=== PATIENT | male | born 1980 | race Caucasian/White ===

== ENCOUNTER 2017-12-07 12:10 | Emergency (ER) | payer MEDICARE, MEDICAID ==
[~2017-12-07 12:10] MED LIST changes: -ALBU2.5V36 INH
--- NOTE | 2017-12-07 12:20 | ER Report ---
History and Physical Time Seen By MD: 12:20 HPI/ROS CHIEF COMPLAINT: Altered LOC HISTORY OF PRESENT ILLNESS: This is a 37-year-old male who presents to the emergency department via EMS for a syncopal episode. Patient [place] got to the [employer] restaurant and "blacked out" doesn't really remember anything after that. EMS was called and they noted his blood sugar to be in the 30s he was given an amp of D50 mentation slightly improved. They did start an IV gave him some fluids. Patient denies headache, nausea, vomiting, diarrhea, aches, chills, chest pain, shortness of breath no dysuria. Patient states that this "blacking out" happens once while, happened last year however he states he never came in for evaluation. She denies a family history of diabetes, hypoglycemia or sudden cardiac . REVIEW OF SYSTEMS: Constitutional: No fever, no chills. Eyes: No discharge. ENT: No sore throat. Cardiovascular: No chest pain, no palpitations. Respiratory: No cough, no shortness of breath. Gastrointestinal: No abdominal pain, no vomiting. Genitourinary: No hematuria. Musculoskeletal: No back pain. Skin: No rashes. Neurological: As above. Allergies: Coded Allergies: No Known Drug Allergies (Unverified , 12/07/17) Home Meds Reported Medications Albuterol Sulfate 0.083% (ALBUTEROL SULFATE 0.083%) 2.5 Mg/3 Ml Vial.neb, 2.5 MG INH, INH 12/07/17 Albuterol Sulfate 90 Mcg/Act (PROAIR HFA 90 MCG/ACT) 8.5 Gm Hfa.aer.ad, 1-2 PUFF IH 3-4XD, INHALER 06/22/16 Discontinued Scripts Cyclobenzaprine Hcl (CYCLOBENZAPRINE HCL) 10 Mg Tablet, 10 MG PO TID, #9 TAB Prov:ADRIANO HUGHES MD 03/30/17 Past Medical/Surgical History Patient has a past medical and surgical history of neurofibromitosis, chronic back pain, appendectomy. Reviewed Nurses Notes: Yes Hx Smoking: No Smoking Status: Never Smoker Hx Substance Use Disorder: No Hx Alcohol Use: No Constitutional Vital Sign - Last 24 Hours 12/07/17 12/07/17 12/07/1718 12:20 12:30 12:40 12:45 Pulse 101 95 Resp 14 21 B/P (MAP) 146/88 (107) 141/83 (102) Pulse Ox 91 89 12/07/17 12/07/17 12/07/17 12/07/17 13:15 13:30 14:00 14:15 Pulse 105 97 Resp 13 16 B/P (MAP) 121/81 (94) 126/82 (97) 12/07/17 12/07/17 14:30 14:51 Pulse 100 Resp 14 B/P (MAP) 137/92 (107) 140/85 (103) Intake and Output 12/07/17 12/07/17 12/08/17 15:00 23:00 07:00 Intake Total 1000 ml Balance 1000 ml Physical Exam General Appearance: The patient is alert, has no immediate need for airway protection and no signs of toxicity. Eyes: Pupils equal and round no pallor or injection. ENT, Mouth: Mucous membranes are moist. It does appear that the patient has some bite fry to the left side of his tongue. Respiratory: There are no retractions, lungs are clear to auscultation. Cardiovascular: Regular rate and rhythm, no murmurs, clicks or rubs. Gastrointestinal: Abdomen is soft and non tender, no masses, bowel sounds normal. Neurological: Patient is alert and oriented 3, he is unable to recall what month without some prompting. He is able to give me a history of his past syncopal episodes. Cranial nerves II through XII intact. No focal neuro deficits. He is following all commands. Skin: Warm and dry, no rashes. Musculoskeletal: Neck is supple non tender. Extremities are nontender, nonswollen and have full range of motion. DIFFERENTIAL DIAGNOSIS: After history and physical exam differential diagnosis was considered for syncope including but not limited to vasovagal syncope, arrhythmia, dehydration, and blood loss. Medical Decision Making Data Points Result Diagram: 12/07/17 1210 12/07/17 1210 Laboratory Hematology Test 12/07/17 12:10 12/07/17 12:39 12/07/17 14:13 12/07/17 14:48 Red Blood Count 6.20 M/uL (4.00-5.60) Mean Corpuscular Volume 85.2 fL (80.0-96.0) Mean Corpuscular Hemoglobin 30.8 pg (26.0-33.0) Mean Corpuscular Hemoglobin Concent 36.1 g/dL (32.0-36.0) Red Cell Distribution Width 13.2 % (11.5-14.5) Mean Platelet Volume 8.6 fL (7.2-11.1) Neutrophils (%) (Auto) 69.4 % (39.4-72.5) Lymphocytes (%) (Auto) 22.5 % (17.6-49.6) Monocytes (%) (Auto) 5.7 % (4.1-12.4) Eosinophils (%) (Auto) 1.5 % (0.4-6.7) Basophils (%) (Auto) 0.9 % (0.3-1.4) Nucleated RBC Relative Count (auto) 0.1 /100WBC Neutrophils # (Auto) 7.5 K/uL (2.0-7.4) Lymphocytes # (Auto) 2.4 K/uL (1.3-3.6) Monocytes # (Auto) 0.6 K/uL (0.3-1.0) Eosinophils # (Auto) 0.2 K/uL (0.0-0.5) Basophils # (Auto) 0.1 K/uL (0.0-0.1) Nucleated RBC Absolute Count (auto) 0.01 K/uL Sodium Level 142 mmol/L (137-145) Potassium Level 3.8 mmol/L (3.5-5.0) Chloride Level 101 mmol/L (98-107) Carbon Dioxide Level 18 mmol/L (22-30) Blood Urea Nitrogen 11 mg/dl (9-21) Creatinine 0.90 mg/dl (0.66-1.25) Glomerular Filtration Rate Calc > 60.0 Random Glucose 123 mg/dl (75-110) Calcium Level 9.9 mg/dl (8.4-10.2) Total Bilirubin 0.7 mg/dl (0.2-1.3) Aspartate Amino Transf (AST/SGOT) 39 U/L (0-35) Alanine Aminotransferase (ALT/SGPT) 77 U/L (0-56) Alkaline Phosphatase 83 U/L (0-126) Ammonia 38 UMOL/L (9-33) Troponin I < 0.012 ng/ml Total Protein 7.7 gm/dl (6.3-8.2) Albumin 5.0 g/dl (3.5-5.0) Thyroid Stimulating Hormone (TSH) 8.07 uIU/ml (0.46-4.68) Serum Alcohol < 10 mg/dl Hemoglobin A1c 5.4 % (4.6-6.0) Whole Blood Glucose 91 mg/DL (75-110) Urine Color Yellow Urine Clarity Clear Urine pH 6.0 pH (4.8-9.5) Urine Specific [place] 1.013 Urine Protein Negative mg/dL (NEGATIVE) Urine Glucose (UA) 50 mg/dL (NEGATIVE) Urine Ketones Negative mg/dL (NEGATIVE) Urine Blood Small (NEGATIVE) Urine Nitrite Negative (NEGATIVE) Urine Bilirubin Negative (NEGATIVE) Urine Urobilinogen Negative mg/dL (0.2-1.9) Urine Leukocyte Esterase Negative (NEGATIVE) Urine RBC 1 /HPF (0-2/HPF) Urine WBC <1 /HPF (0-5/HPF) Urine Squamous Epithelial Cells Few /LPF (</=FEW) Urine Bacteria Negative /HPF (NONE-FEW) Urine Mucus None /HPF (NONE-FEW) Urine Opiates Screen Negative Urine Barbiturates Screen Negative Ur Tricyclic Antidepressants Screen Negative Urine Phencyclidine Screen Negative Urine Amphetamines Screen Negative Urine Benzodiazepines Screen Negative Urine Cocaine Screen Negative Urine Cannabinoids Screen Negative Chemistry Test 12/07/17 12:10 12/07/17 12:39 12/07/17 14:13 12/07/17 14:48 White Blood Count 10.8 k/uL (4.5-11.0) Red Blood Count 6.20 M/uL (4.00-5.60) Hemoglobin 19.1 g/dL (14.0-18.0) Hematocrit 52.9 % (42.0-52.0) Mean Corpuscular Volume 85.2 fL (80.0-96.0) Mean Corpuscular Hemoglobin 30.8 pg (26.0-33.0) Mean Corpuscular Hemoglobin Concent 36.1 g/dL (32.0-36.0) Red Cell Distribution Width 13.2 % (11.5-14.5) Platelet Count 265 K/uL (150-450) Mean Platelet Volume 8.6 fL (7.2-11.1) Neutrophils (%) (Auto) 69.4 % (39.4-72.5) Lymphocytes (%) (Auto) 22.5 % (17.6-49.6) Monocytes (%) (Auto) 5.7 % (4.1-12.4) Eosinophils (%) (Auto) 1.5 % (0.4-6.7) Basophils (%) (Auto) 0.9 % (0.3-1.4) Nucleated RBC Relative Count (auto) 0.1 /100WBC Neutrophils # (Auto) 7.5 K/uL (2.0-7.4) Lymphocytes # (Auto) 2.4 K/uL (1.3-3.6) Monocytes # (Auto) 0.6 K/uL (0.3-1.0) Eosinophils # (Auto) 0.2 K/uL (0.0-0.5) Basophils # (Auto) 0.1 K/uL (0.0-0.1) Nucleated RBC Absolute Count (auto) 0.01 K/uL Glomerular Filtration Rate Calc > 60.0 Calcium Level 9.9 mg/dl (8.4-10.2) Total Bilirubin 0.7 mg/dl (0.2-1.3) Aspartate Amino Transf (AST/SGOT) 39 U/L (0-35) Alanine Aminotransferase (ALT/SGPT) 77 U/L (0-56) Alkaline Phosphatase 83 U/L (0-126) Ammonia 38 UMOL/L (9-33) Troponin I < 0.012 ng/ml Total Protein 7.7 gm/dl (6.3-8.2) Albumin 5.0 g/dl (3.5-5.0) Thyroid Stimulating Hormone (TSH) 8.07 uIU/ml (0.46-4.68) Serum Alcohol < 10 mg/dl Hemoglobin A1c 5.4 % (4.6-6.0) Whole Blood Glucose 91 mg/DL (75-110) Urine Color Yellow Urine Clarity Clear Urine pH 6.0 pH (4.8-9.5) Urine Specific [place] 1.013 Urine Protein Negative mg/dL (NEGATIVE) Urine Glucose (UA) 50 mg/dL (NEGATIVE) Urine Ketones Negative mg/dL (NEGATIVE) Urine Blood Small (NEGATIVE) Urine Nitrite Negative (NEGATIVE) Urine Bilirubin Negative (NEGATIVE) Urine Urobilinogen Negative mg/dL (0.2-1.9) Urine Leukocyte Esterase Negative (NEGATIVE) Urine RBC 1 /HPF (0-2/HPF) Urine WBC <1 /HPF (0-5/HPF) Urine Squamous Epithelial Cells Few /LPF (</=FEW) Urine Bacteria Negative /HPF (NONE-FEW) Urine Mucus None /HPF (NONE-FEW) Urine Opiates Screen Negative Urine Barbiturates Screen Negative Ur Tricyclic Antidepressants Screen Negative Urine Phencyclidine Screen Negative Urine Amphetamines Screen Negative Urine Benzodiazepines Screen Negative Urine Cocaine Screen Negative Urine Cannabinoids Screen Negative Toxicology Test 12/07/17 12:10 12/07/17 14:48 Serum Alcohol < 10 mg/dl Urine Opiates Screen Negative Urine Barbiturates Screen Negative Ur Tricyclic Antidepressants Screen Negative Urine Phencyclidine Screen Negative Urine Amphetamines Screen Negative Urine Benzodiazepines Screen Negative Urine Cocaine Screen Negative Urine Cannabinoids Screen Negative Urinalysis Test 12/07/17 14:48 Urine Color Yellow Urine Clarity Clear Urine pH 6.0 pH (4.8-9.5) Urine Specific [place] 1.013 Urine Protein Negative mg/dL (NEGATIVE) Urine Glucose (UA) 50 mg/dL (NEGATIVE) Urine Ketones Negative mg/dL (NEGATIVE) Urine Blood Small (NEGATIVE) Urine Nitrite Negative (NEGATIVE) Urine Bilirubin Negative (NEGATIVE) Urine Urobilinogen Negative mg/dL (0.2-1.9) Urine Leukocyte Esterase Negative (NEGATIVE) Urine RBC 1 /HPF (0-2/HPF) Urine WBC <1 /HPF (0-5/HPF) Urine Squamous Epithelial Cells Few /LPF (</=FEW) Urine Bacteria Negative /HPF (NONE-FEW) Urine Mucus None /HPF (NONE-FEW) EKG/Imaging EKG Interpretation 12 lead EKG: Time of EKG 1236. Rhythm: Sinus tachycardia, ventricular rate 102 bpm. [place]: normal QRS: normal ST segments: No ST depression or elevation identified. Imaging CT examination of the head and cervical spine without contrast Indication: Syncope Comparison: None available Technique: Axial CT images were taken of the head and cervical spine. Sagittal and coronal reformatted images were obtained and reviewed. One of the following dose optimization techniques was utilized in the performance of this exam: Automated exposure control; adjustment of the mA and/or kV according to the patient's size; or use of an iterative reconstruction technique. Specific details can be referenced in the facility's radiology CT exam operational policy. Findings: The ventricular system has a normal size and configuration. There is no evidence of hydrocephalus, mass, mass effect, midline shift, abnormal extra- axial fluid collection, intraparenchymal hemorrhage or ischemic territorial infarct. Calvarium is intact. Paranasal sinuses are well pneumatized. There is coalescence of the left mastoid air cells which may be developmental or from a prior infection. There is a soft tissue density overlying the posterior left scalp. Correlate with fall or hematoma. Sella is expanded, with empty sella turcica. This may be secondary to an arachnoid cyst or idiopathic intracranial hypertension. Cervical spine: Prevertebral soft tissue is within normal limits. Facets align appropriately. No evidence of acute fracture or destructive osseous process. IMPRESSION: 1. No acute intracranial abnormality. 2. Expanded, empty sella turcica. At this age, differential includes arachnoid cyst versus idiopathic intracranial hypertension. 3. 1.7 cm circular soft tissue abnormality overlying the posterior left scalp. This is assumed to be hematoma after fall. If there is no clinical sign of hematoma, further evaluation would be warranted to rule out a underlying soft tissue lesion. 4. No evidence of acute osseous finding involving the cervical spine. Report Dictated By: Adriano Walker MD at 12/07/2017 1:14 PM Report E-Signed By: Adriano Walker MD at 12/07/2017 1:27 PM WSN:[email or web address] Chest with lateral, two views. HISTORY: Syncope. COMPARISON: 06/23/2016. Mild bronchial thickening is present bilaterally. The heart and mediastinum are unremarkable. Pulmonary vessels are unremarkable. The lungs are otherwise clear. The pleural surfaces are unremarkable. No pneumothorax. The bones are unremarkable. IMPRESSION: Mild bronchial thickening. Otherwise no evidence of acute cardiopulmonary disease. Report Dictated By: Jose Elaine MD at 12/07/2017 1:23 PM Report E-Signed By: Jose Elaine MD at 12/07/2017 1:24 PM WSN:[email or web address] Location: [facility] [place] Patient: Siva Page : 1980 Visit/Account:[id number] Date of Sevice: 12/07/2017 CT examination of the head and cervical spine without contrast Indication: Syncope Comparison: None available Technique: Axial CT images were taken of the head and cervical spine. Sagittal and coronal reformatted images were obtained and reviewed. One of the following dose optimization techniques was utilized in the performance of this exam: Automated exposure control; adjustment of the mA and/or kV according to the patient's size; or use of an iterative reconstruction technique. Specific details can be referenced in the facility's radiology CT exam operational policy. Findings: The ventricular system has a normal size and configuration. There is no evidence of hydrocephalus, mass, mass effect, midline shift, abnormal extra- axial fluid collection, intraparenchymal hemorrhage or ischemic territorial infarct. Calvarium is intact. Paranasal sinuses are well pneumatized. There is coalescence of the left mastoid air cells which may be developmental or from a prior infection. There is a soft tissue density overlying the posterior left scalp. Correlate with fall or hematoma. Sella is expanded, with empty sella turcica. This may be secondary to an arachnoid cyst or idiopathic intracranial hypertension. Cervical spine: Prevertebral soft tissue is within normal limits. Facets align appropriately. No evidence of acute fracture or destructive osseous process. IMPRESSION: 1. No acute intracranial abnormality. 2. Expanded, empty sella turcica. At this age, differential includes arachnoid cyst versus idiopathic intracranial hypertension. 3. 1.7 cm circular soft tissue abnormality overlying the posterior left scalp. This is assumed to be hematoma after fall. If there is no clinical sign of hematoma, further evaluation would be warranted to rule out a underlying soft tissue lesion. 4. No evidence of acute osseous finding involving the cervical spine. Report Dictated By: Adriano Walker MD at 12/07/2017 1:14 PM Report E-Signed By: Adriano Walker MD at 12/07/2017 1:27 PM WSN:[facility] ED Course/Re-evaluation Clinical Indication for ER IV: Hydration, IV Access ED Course Patient was admitted to room. A history of physical are obtained. Differential diagnoses were considered. An IV was started. A CBC, CMP, troponin, ammonia were obtained. A UA was obtained. CBC showing hemoglobin 19.1, hematocrit 50.9. Chemistry showing AST 39, ALT 77, negative troponin. TSH 8.07. Negative tox screen. Negative UA. Negative head CT and negative C-spine. EKG showing normal sinus rhythm. I did review these results with the patient. I did tell him that I don't have a definitive explanation as to why he had this syncopal episode while he's had them in the past I did tell him that it could be due to the hypoglycemia events and he needs to have an evaluation for this as well as his elevated TSH with could be contributed to these events as well. The patient expressed understanding. I did tell him that this needs to happen within the next 2-4 days. If the symptoms return or if he has any other concerns should return to emergency department for further evaluation. Patient expressed understanding and was okay with this plan of care. Decision to Disposition Date: Dec 07, 2017 Decision to Disposition Time: 14:27 Depart Departure Latest Vital Signs Vital Signs Date Time Temp Pulse Resp B/P (MAP) Pulse Ox O2 Delivery O2 Flow Rate FiO2 12/07/17 14:51 140/85 (103) 12/07/17 14:30 100 14 12/07/17 12:45 89 Impression: Primary Impression: Syncopal episodes Additional Impressions: Elevated TSH Hypoglycemia Condition: Improved Disposition: HOME OR SELF-CARE Referrals: DIOGENES BLISS (PCP) Patient Instructions: Non-diabetic Hypoglycemia (ED), Syncope (ED) Additional Instructions: Drink plenty of fluids. Get plenty of rest. Try to eat more than 2 meals a day, keeps snacks with you. Follow-up with Diogenes Bliss in 2-4 days. Return to the emergency department for any other concerns or worsening symptoms. Problem Qualifiers Primary Impression: Syncopal episodes Syncope type: unspecified Qualified Codes: R55 - Syncope and collapse ILSA WREN [employer]PERVISOR-BC Dec 07, 2017 12:20
[2017-12-07] MEDS ORDERED: ALBU2.5V36 INH (12:21)
[2017-12-07] MEDS ORDERED: EMS NS 0.9%(*) 1000 ML BAG 1,000 ML IV ONE (12:35)
[2017-12-07 12:45] LABS: PLATELET COUNT, AUTOMATED 265 K/uL (150-450)
--- NOTE | 2017-12-07 13:16 | EKG ---
FACILITY: [facility] - [place] PATIENT NAME: KERRY JIMÉNEZ : [id number] MR: [id number] V: [id number] EXAM DATE: ORDERING PHYSICIAN: ILSA WREN TECHNOLOGIST: BRITTNY Test Reason : SYNCOPE Blood Pressure : / mmHG Vent. Rate : 102 BPM Atrial Rate : 102 BPM P-R Int : 154 ms QRS Dur : 086 ms QT Int : 344 ms P-R-T Axes : 046 075 039 degrees QTc Int : 448 ms Sinus tachycardia Otherwise normal ECG When compared with ECG of 31-MAR-2016 20:31, Previous ECG has undetermined rhythm, needs review Confirmed by NAVIN CHRISTENSEN ([id number]) on 12/08/2017 6:30:09 AM Referred By: GISSELL Confirmed By:NAVIN CHRISTENSEN
--- NOTE | 2017-12-07 13:29 | RADIOLOGY IMAGING REPORT ---
FACILITY: [facility] PATIENT NAME: Siva Page : 1980 MR: [id number] V: [id number] EXAM DATE: ORDERING PHYSICIAN: ILSA WREN TECHNOLOGIST: Location: [facility] - [place] Patient: Siva Page : 1980 Visit/Account:[id number] Date of Sevice: 12/07/2017 Chest with lateral, two views. HISTORY: Syncope. COMPARISON: 06/23/2016. Mild bronchial thickening is present bilaterally. The heart and mediastinum are unremarkable. Pulmo nary vessels are unremarkable. The lungs are otherwise clear. The pleural surfaces are unremarkable. No pneumothorax. The bones are unremarkable. IMPRESSION: Mild bronchial thickening. Otherwise no evidence of acute cardiopulmonary disease. Report Dictated By: Jose Elaine MD at 12/07/2017 1:23 PM Report E-Signed By: Jose Elaine MD at 12/07/2017 1:24 PM WSN:[email or web address]
--- NOTE | 2017-12-07 13:31 | RADIOLOGY IMAGING REPORT ---
FACILITY: [facility] PATIENT NAME: Siva Page : 1980 MR: [id number] V: [id number] EXAM DATE: ORDERING PHYSICIAN: ILSA WREN TECHNOLOGIST: Location: [facility] Patient: Siva Page : 1980 Visit/Account:[id number] Date of Sevice: 12/07/2017 CT examination of the head and cervical spine without contrast Indication: Syncope Comparison: None available Technique: Axial CT images were taken of the head and cervical spine. Sagittal and coronal reformatt ed images were obtained and reviewed. One of the following dose optimization techniques was utilized in the performance of this exam: Automated exposure control; adjustment of the mA and/or kV accordin g to the patient's size; or use of an iterative reconstruction technique. Specific details can be r eferenced in the facility's radiology CT exam operational policy. Findings: The ventricular system has a normal size and configuration. There is no evidence of hydrocephalus, m ass, mass effect, midline shift, abnormal extra-axial fluid collection, intraparenchymal hemorrhage o r ischemic territorial infarct. Calvarium is intact. Paranasal sinuses are well pneumatized. There is coalescence of the left masto id air cells which may be developmental or from a prior infection. There is a soft tissue density ov erlying the posterior left scalp. Correlate with fall or hematoma. Sella is expanded, with empty sella turcica. This may be secondary to an arachnoid cyst or idiopathi c intracranial hypertension. Cervical spine: Prevertebral soft tissue is within normal limits. Facets align appropriately. No ev idence of acute fracture or destructive osseous process. IMPRESSION: 1. No acute intracranial abnormality. 2. Expanded, empty sella turcica. At this age, differential includes arachnoid cyst versus idiopath ic intracranial hypertension. 3. 1.7 cm circular soft tissue abnormality overlying the posterior left scalp. This is assumed to b e hematoma after fall. If there is no clinical sign of hematoma, further evaluation would be warrant ed to rule out a underlying soft tissue lesion. 4. No evidence of acute osseous finding involving the cervical spine. Report Dictated By: Adriano Walker MD at 12/07/2017 1:14 PM Report E-Signed By: Adriano Walker MD at 12/07/2017 1:27 PM WSN:[email or web address]
--- NOTE | 2017-12-07 13:32 | RADIOLOGY IMAGING REPORT ---
FACILITY: [facility] PATIENT NAME: Siva Page : 1980 MR: [id number] V: [id number] EXAM DATE: ORDERING PHYSICIAN: ILSA WREN TECHNOLOGIST: Location: [facility] Patient: Siva Page : 1980 Visit/Account:[id number] Date of Sevice: 12/07/2017 CT examination of the head and cervical spine without contrast Indication: Syncope Comparison: None available Technique: Axial CT images were taken of the head and cervical spine. Sagittal and coronal reformatt ed images were obtained and reviewed. One of the following dose optimization techniques was utilized in the performance of this exam: Automated exposure control; adjustment of the mA and/or kV accordin g to the patient's size; or use of an iterative reconstruction technique. Specific details can be r eferenced in the facility's radiology CT exam operational policy. Findings: The ventricular system has a normal size and configuration. There is no evidence of hydrocephalus, m ass, mass effect, midline shift, abnormal extra-axial fluid collection, intraparenchymal hemorrhage o r ischemic territorial infarct. Calvarium is intact. Paranasal sinuses are well pneumatized. There is coalescence of the left masto id air cells which may be developmental or from a prior infection. There is a soft tissue density ov erlying the posterior left scalp. Correlate with fall or hematoma. Sella is expanded, with empty sella turcica. This may be secondary to an arachnoid cyst or idiopathi c intracranial hypertension. Cervical spine: Prevertebral soft tissue is within normal limits. Facets align appropriately. No ev idence of acute fracture or destructive osseous process. IMPRESSION: 1. No acute intracranial abnormality. 2. Expanded, empty sella turcica. At this age, differential includes arachnoid cyst versus idiopath ic intracranial hypertension. 3. 1.7 cm circular soft tissue abnormality overlying the posterior left scalp. This is assumed to b e hematoma after fall. If there is no clinical sign of hematoma, further evaluation would be warrant ed to rule out a underlying soft tissue lesion. 4. No evidence of acute osseous finding involving the cervical spine. Report Dictated By: Adriano Walker MD at 12/07/2017 1:14 PM Report E-Signed By: Adriano Walker MD at 12/07/2017 1:27 PM WSN:[email or web address]
[2017-12-07 14:51] VITALS: BP 140/85
== END 2017-12-07 14:59 | disposition home or self-care (01) ==
LOC: ER 12:17
DX: E16.2 Hypoglycemia, unspecified (principal); R94.6 Abnormal results of thyroid function studies; R55 Syncope and collapse; R00.0 Tachycardia, unspecified
CPT/HCPCS: 36416; 70450; 71046; 72125; 80305; 81001; 82140; 82948; 83036; 84443; 84484; 85025; 93005; 96360; 99284; G0480; 80320; 82040; 82247; 82310; 82374; 82435; 82565; 82947; 84075; 84132; 84155; 84295; 84450; 84460; 84520

== ENCOUNTER → 2017-12-07 | Outpatient (CLI) | payer MEDICARE, MEDICAID ==
[~2017-12-07] MED LIST: ACET-3017 PO; ALBU2.5V36 INH; ALBU8.5H IH; AMOX-362 PO; CEPH-13 PO; CYCL10TA29 PO; HYDR-4309 PO; LOR5/325 PO; TRAM-420 PO
== END ==
LOC: AMB 11:52
PROVIDERS: ATTEND Nurse Practitioner
DX: R41.82 Altered mental status, unspecified (principal); E16.2 Hypoglycemia, unspecified
CPT/HCPCS: A0425; A0427